=== PATIENT | female | born 1960 | race Caucasian/White ===

== ENCOUNTER → 2022-07-27 09:11 | Outpatient (CLI) | payer SELFPAY ==
[2022-07-27 10:16] LABS: COVID19 -Nasal RAPID Negative (Negative)
== END ==
PROVIDERS: PCP Student in an Organized Health Care Education/Training Program; Visit Provider Surgery
DX: Z20.822 Contact with and (suspected) exposure to COVID-19 (principal); Z01.812 Encounter for preprocedural laboratory examination
CPT/HCPCS: 87635; C9803

== ENCOUNTER 2022-07-28 06:55 | Day surgery (SDC) | payer SELFPAY ==
[2022-07-23 14:52] VITALS: BMI 45.4
[2022-07-28] MEDS: LACTATED RINGERS 1,000 ML 42 ML IV (07:16)
[2022-07-28 07:20] VITALS: BP 118/72; PULSE 83; RESP 20; TEMP 36.1; O2SAT 96; BMI 28.8
--- NOTE | 2022-07-28 07:44 | PM.HP.1 ---
History of Present Illness History of Present Illness Date Patient Seen: 07/28/22 Time Patient Seen: 07:45 Chief complaint: SDC Narrative: Daniel is here for her umbilical hernia repair. There have been no changes. See office note from June for details. Patient History Medical History (Updated 07/23/22 @ 14:56 by Shiloh Alvarez RN) Arthritis Cystocele and rectocele with incomplete uterovaginal prolapse (2013) Depression Easy bruisability Hepatitis B HLD (hyperlipidemia) Surgical History (Updated 07/23/22 @ 14:56 by Shiloh Alvarez RN) H/O tubal ligation (1987) H/O: hysterectomy (2001) Family & Social History Social History: household members significant other Tobacco & Substance use: Tobacco type cigarettes,e-cigarettes Smoking Status Former smoker alcohol intake current alcohol intake frequency 3 or more drinks per day Substance Use Type former substance user,marijuana Meds Home Medications and Allergies Home Medications Medication Instructions Recorded Confirmed Type acetaminophen 500 mg tablet 1,000 mg PO BID PRN Pain 06/08/22 07/28/22 History ascorbic acid (vitamin C) 1,000 mg 1 g PO DAILY 06/08/22 07/28/22 History tablet atorvastatin 20 mg tablet 20 mg PO DAILY 06/08/22 07/28/22 History cholecalciferol (vitamin D3) 250 250 mcg PO DAILY 06/08/22 07/28/22 History mcg (10,000 unit) capsule fluoxetine 20 mg capsule (Prozac) 20 mg PO DAILY 06/08/22 07/28/22 History ibuprofen 600 mg tablet 600 mg PO BID 06/08/22 07/28/22 History multivitamin (Daily Multi-Vitamin 1 tab PO DAILY 06/08/22 07/28/22 History tablet) vitamin B complex 1 cap PO DAILY 06/08/22 07/28/22 History valacyclovir 500 mg tablet 500 mg PO DAILY 07/23/22 07/28/22 History Allergies Allergy/AdvReac Type Severity Reaction Status Date / Time No Known Drug Allergies Allergy Verified 07/28/22 07:16 Exam Vital Signs (past 8 hours): - 07/28/22 07:20 Temperature 97.0 F L Pulse Rate 83 Respiratory Rate 20 Blood Pressure 118/72 Pulse Oximetry 96 Oxygen Delivery Method Room Air Oxygen Delivery Method Room Air Narrative Exam Narrative: Umbilical hernia Assessment & Plan Assessment and plan (1) Umbilical hernia: Qualifiers: Obstruction and gangrene presence: without obstruction or gangrene Qualified Code(s): K42.9 - Umbilical hernia without obstruction or gangrene Status: Acute Plan We reviewed the risks and benefits of the open umbilical hernia repair with mesh and she would like to proceed. Time Spent With Patient Critical Care time: I spent a total of [] minutes of critical care time on this patient's care today; this time is exclusive of procedural time.
--- NOTE | 2022-07-28 07:57 | SUR.OPER ---
Supine on padded OR bed, head on pillow, arms secured on padded arm boards at <90 degrees abduction, legs uncrossed, safety belt at thigh, tape over blanket over lower legs.
[2022-07-28] MEDS: CEFAZOLIN 2 GM/100 ML PREMIX 100 ML IV (08:00)
[2022-07-28] MEDS: BUPIVACAINE 0.25% (PF) 30 ML, EPINEPHrine 0.15 MG INJ (08:09)
[2022-07-28 08:55] VITALS: BP 110/73; PULSE 89; RESP 15; TEMP 36.8; O2SAT 94
[2022-07-28 09:00] VITALS: BP 106/78; PULSE 86; RESP 18; O2SAT 94
--- NOTE | 2022-07-28 09:03 | P.OP_ITS ---
Operative Date/Time/Diagnoses Date of procedure: 07/28/22 Time of procedure: 09:03 Pre-op diagnosis: Umbilical hernia Post-op diagnosis: same Procedure & Clinicians Procedure: Open umbilical hernia repair with mesh Same procedure as scheduled: Yes Surgeon: Jimenez Story Operative Notes Procedure in detail: Ancef was administered. The patient was brought to the operating room, placed on the table in the supine position and general endotracheal anesthesia was induced. The abdomen was prepped and draped in the usual fashion. A time-out was performed. A 5 cm curvilinear incision was made inferior to the umbilicus. The hernia sac was dissected free from the surrounding subcutaneous adipose tissue. The sac was dissected off the umbilical stalk using a combination of cautery, sharp and blunt dissection. The hernia sac was dissected free from the fascial ring. The sac partially transected off the umbilical stalk. The contents of the hernia appeared to be omentum were allowed to fall back into the abdomen. The fascia was then closed transversely with multiple interrupted 0 Et hibond sutures. The subcutaneous adipose tissue was cleared off of the anterior sheath circumferentially about 2 cm in each direction. A piece of polypropylene mesh was trimmed to fit over the fascial closure and secured with Tisseel. Once the Tisseel was dried the umbilical skin was tacked down to the deep fat with a single 3-0 Vicryl stitch. The skin was closed with multiple interrupted 3-0 Vicryl dermal sutures followed by a running 4 Monocryl subcuticular closure. Steri-Strips were applied and an abdominal binder was applied. Post-operative Condition: stable Disposition: PACU
[2022-07-28] MEDS: OXYCODONE/ACETAMINOPHEN 5/325 TABLET 1 TAB PO (09:04)
[2022-07-28 09:05] VITALS: BP 115/80; PULSE 83; RESP 11; O2SAT 95
[2022-07-28] MEDS: ONDANSETRON 4 MG/2 ML INJ IV (09:05)
[2022-07-28 09:11] VITALS: BP 126/79; PULSE 83; RESP 24; TEMP 36.7; O2SAT 98
== END 2022-07-28 09:30 | disposition home or self-care (01) ==
PROVIDERS: PCP Student in an Organized Health Care Education/Training Program; Referring Provider Surgery; Visit Provider Surgery
PROC: (CPT 49585; principal; 2022-07-28 07:45)
DX: K42.9 Umbilical hernia without obstruction or gangrene (principal)
CPT/HCPCS: 49585; J0171; J0690; J1885; J2250; J2405; J2704; J3010